=== PATIENT | female | born 1995 | race Caucasian/White ===

== ENCOUNTER 2020-03-29 21:13 | Outpatient (CLI) | payer MEDICAID | END 2020-03-29 21:14 | disposition home or self-care (01) | LOC: COV 21:13 | PROVIDERS: ATTEND Family Medicine | DX: M79.10 Myalgia, unspecified site (principal); R53.83 Other fatigue; R68.83 Chills (without fever); R19.7 Diarrhea, unspecified; Z20.822 Contact with and (suspected) exposure to COVID-19 ==

== ENCOUNTER 2020-07-28 12:50 | Outpatient (CLI) | payer MEDICAID | END 2020-07-28 23:59 | disposition home or self-care (01) | LOC: COV 12:50 | PROVIDERS: ATTEND Family Medicine | DX: Z20.822 Contact with and (suspected) exposure to COVID-19 (principal) ==